=== PATIENT | male | born 1960 | race Two or more races ===

== ENCOUNTER 2021-10-23 17:23 | Emergency (ER) | payer OTHER ==
[~2021-10-23] VITALS: Ht 175.3 cm; Wt 124.7 kg
[2021-10-23] MEDS ORDERED: ATORVASTATIN CA40 MG (17:35)
== END 2021-10-23 22:55 | disposition home or self-care (01) ==
LOC: ER 17:23
DX: N39.0 Urinary tract infection, site not specified (principal); E78.00 Pure hypercholesterolemia, unspecified; Z20.822 Contact with and (suspected) exposure to COVID-19